=== PATIENT | male | born 1950 | race Caucasian/White ===

== ENCOUNTER 2016-07-21 12:56 | Outpatient (CLI) | payer MEDICARE, OTHER ==
[2016-07-21] MEDS ORDERED: ACETAMINOPHEN 500 MG TAB (TYLENOL) PO SCH (13:15)
[2016-07-21] MEDS ORDERED: NS FLUSH 10 ML PRN IV (13:15)
[2016-07-21] MEDS ORDERED: IMMUNE GLOBULIN GAMMA IV ONE (13:15)
[2016-07-21] MEDS ORDERED: diphenhydrAMINE 25 MG (BENADRYL) TABLET PO SCH (13:15)
[2016-07-21] MEDS ORDERED: NS FLUSH 3 ML PRN IV (13:15)
[2016-07-21] MEDS ORDERED: methylPREDNISolone 40 MG/ML (Solu-MEDROL) VIAL IV PRN (13:20)
--- NOTE | 2016-07-21 15:06 | NUR ---
1330 Pt arrived at the OB unit for infusion. 1430 Successful IV start. 1455 Pt transferred to ICU for infusion due to OB unit census/staffing.
[2016-07-21 15:10] VITALS: BP 143/82
[2016-07-21 15:26] VITALS: BP 143/82
--- NOTE | 2016-07-21 17:21 | NUR ---
1500- Patient arrives to room 341. 20 gauge IV in right wrist. VSS. 1510- IVIG infusion begins at 20cc/hr 1540- IVIG infusion increased to 40 cc/hr 1610- IVIG infusion increased to 80 cc/hr. 1640- IVIG infusion increased to 160cc/hr 1710- IVIG infusion increased to 270cc/hr.
--- NOTE | 2016-07-21 17:28 | NUR ---
IV infusion complete at this time
--- NOTE | 2016-07-21 17:46 | NUR ---
Chicho RN removes IV and escorts the patient out of the building at this time.
[2016-07-21 17:49] VITALS: BP 160/71
[2016-07-21 17:50] VITALS: BP 160/71
== END 2016-07-21 17:50 | disposition home or self-care (01) ==
LOC: OB 13:26 → ICU 14:32 → EUOP 17:50
PROVIDERS: ATTEND Family Medicine
DX: D83.8 Other common variable immunodeficiencies (principal)
CPT/HCPCS: 96365; 96366; J1459

== ENCOUNTER 2016-07-29 09:45 | Outpatient (RCR) | payer MEDICARE, OTHER | END 2016-08-17 | disposition home or self-care (01) | LOC: PT 09:45 | PROVIDERS: ATTEND Family Medicine | DX: J96.20 Acute and chronic respiratory failure, unspecified whether with hypoxia or hypercapnia (principal); J44.1 Chronic obstructive pulmonary disease with (acute) exacerbation; E86.0 Dehydration | CPT/HCPCS: 97001; 97110; G8978; G8979 ==

== ENCOUNTER 2016-08-03 16:36 | Inpatient (IN) | payer MEDICARE, OTHER ==
[~2016-08-03] VITALS: Ht 185.4 cm; Wt 68.5 kg
[2016-08-03 16:45] VITALS: BP 166/90
--- NOTE | 2016-08-03 16:45 | NUR ---
Patient admitted to room [address] Beckett's office. He reports increased shortness of air over the past several days but denies increased O2 use. He states he has remained on 2 liters NC as per home.
[2016-08-03] MEDS ORDERED: ALBUTEROL/IPRATROPIUM 3MG-0.5MG/3ML (DUONEB) NEB VIAL INH SCH (17:05)
[2016-08-03] MEDS ORDERED: SODIUM CHLORIDE FLUSH 10 ML ONE (17:28)
[2016-08-03] MEDS ORDERED: LACTATED RINGERS 1,000 ML IV SCH (17:28)
[2016-08-03] MEDS ORDERED: CALCIUM CARBONATE CHEWABLE 300 MG (TUMS) TABLET PO PRN (17:30)
[2016-08-03] MEDS ORDERED: ALBUTEROL 0.083% NEB SOLUTION 2.5 MG/3 ML VIAL INH PRN (17:30)
[2016-08-03] MEDS ORDERED: NS FLUSH 3 ML PRN IV (17:30)
[2016-08-03] MEDS ORDERED: NS FLUSH 10 ML PRN IV (17:30)
[2016-08-03] MEDS ORDERED: POLYETHYLENE GLYCOL 17 GM (MIRALAX) PACKET PO PRN (17:30)
[2016-08-03] MEDS ORDERED: ONDANSETRON 4 MG (ZOFRAN) ORAL DISSOLVE TAB PO PRN (17:30)
[2016-08-03] MEDS ORDERED: MAGNESIUM HYDROXIDE 80MG/ML (MILK OF MAGNESIA) 30 ML UDC PO PRN (17:30)
[2016-08-03] MEDS ORDERED: MAG HYDROX/AL HYDROX/SIMETH 200-200-20/5 ML (MAG-AL PLUS) 30 ML UDC PO PRN (17:30)
[2016-08-03] MEDS ORDERED: IBUPROFEN 600 MG (MOTRIN) TAB PO PRN (17:30)
--- NOTE | 2016-08-03 17:32 | NUR ---
Medication reconciliation completed using Dr. Beckett's clinic medical record for prescribed and OTC medications.
[2016-08-03 17:37] LABS: MEAN CORPUSCULAR HEMOGLOBIN 29.3 PG (26.0-34.0); MEAN CORPUSCULAR VOLUME 86 FL (80-100); MEAN PLATELET VOLUME 10.2 FL (6.0-9.5); PLATELET COUNT 310 10^3uL (150-450); WHITE BLOOD COUNT 17.29 10^3uL (4.0-11.0)
[2016-08-03] MEDS: ASPIRIN 81 MG CHEW PO SCH (17:37)
[2016-08-03 17:48] LABS: ALBUMIN 4.5 g/dL (3.4-5.0); ANION GAP 16.6 MEQ/L (3-15); CALCULATED IONIZED CALCIUM 4.2 mg/dL (3.8-4.6); MAGNESIUM* 1.9 mg/dL (1.6-2.3); PHOSPHORUS 3.1 mg/dL (2.4-4.9); TOTAL PROTEIN 7.6 g/dL (6.4-8.5)
[2016-08-03] MEDS ORDERED: ALBUTEROL/IPRATROPIUM 3MG-0.5MG/3ML (DUONEB) NEB VIAL INH ONE (17:50)
[2016-08-03 17:51] LABS: BAND NEUTROPHILS % 2 % (0-6); EOSINOPHILS % 0 % (0-4); LYMPHOCYTES # 1.6 #; MONOCYTES # 0.9 #; MONOCYTES % 5 % (3-11); RBC MORPH NORMAL (NORMAL); SEGMENTED NEUTROPHILS % 84 % (51-67); TOTAL CELLS COUNTED 100
[2016-08-03] MEDS: methylPREDNISolone 125 MG (Solu-MEDROL) VIAL IV SCH ×2 (18:22→23:48)
[2016-08-03] MEDS: CALCIUM CARBONATE 500 MG PO SCH (18:25)
--- NOTE | 2016-08-03 18:30 | NUR ---
Patient remains on O2 at 2 liters NC. Activity tolerance is actually better with this admission than it was with the last admission.
[2016-08-03 18:53] VITALS: BP 166/90
--- NOTE | 2016-08-03 19:40 | NUR ---
Pt placed on Continuous Pulse Oximetry
[2016-08-03] MEDS: ACETAMINOPHEN 325 MG TAB (TYLENOL) PO PRN (20:00)
[2016-08-03] MEDS: FLUTICASONE/SALMETEROL HFA 115/21 MCG (ADVAIR) COMMON CANNISTER INH SCH (20:19)
--- NOTE | 2016-08-03 20:24 | NUR ---
Pt found lying in bed on 2 l/min NC equal to home use. SPI2 95%, HR 100, RR 20 and non labored with clear upper lobes and crackles in bilateral bases. 2p Advair 115/21 tolerated well.
--- NOTE | 2016-08-03 20:30 | NUR ---
Resting in bed. Alert and oriented. IV patent, no complications at site. Respirations even and non-labored. Tylenol 650mg just given for a headache. Watching the basketball game. No concerns voiced. Crackles noted in bilateral bases. Occasional non-productive cough. Pleasant. Cooperative with cares.
[2016-08-03] MEDS ORDERED: LEVOFLOXACIN 750 MG/150 ML IV 150 ML IV SCH (21:15)
[2016-08-03] MEDS: ALBUTEROL 0.083% NEB SOLUTION 2.5 MG/3 ML VIAL INH SCH (21:56)
--- NOTE | 2016-08-03 21:58 | NUR ---
Pt found sitting on the side of his bed watching TV. SPO2 95% on RA, HR 97, RR 20 and non labored, BS clear and diminished before and after Duoneb via SVN which was tolerated well.
[2016-08-03] MEDS: ZOLPIDEM 10 MG (AMBIEN) TAB PO PRN (22:19)
--- NOTE | 2016-08-03 22:19 | NUR ---
Ultram 50mg administered along with sleeping meddication. Call light within reach.
[2016-08-03 23:58] VITALS: BP 94/50
[2016-08-04] MEDS: methylPREDNISolone 125 MG (Solu-MEDROL) VIAL IV SCH (06:00)
--- NOTE | 2016-08-04 06:30 | NUR ---
Rested well tonight. Oxygen remains on at 2 liters per NC. No respiratory difficulties noted. Denies pain. Fluids taken well. IV patent. Antibiotics administered as ordered. No concerns this morning. Call light within reach.
[2016-08-04 06:34] LABS: MEAN CORPUSCULAR HGB CONC 33.6 g/dL (31.0-37.0); MEAN CORPUSCULAR VOLUME 86 FL (80-100); MEAN PLATELET VOLUME 11.1 FL (6.0-9.5); PLATELET COUNT 300 10^3uL (150-450); WHITE BLOOD COUNT 15.66 10^3uL (4.0-11.0)
[2016-08-04 06:43] LABS: BAND NEUTROPHILS % 4 % (0-6); LYMPHOCYTES # 0.9 #; SEGMENTED NEUTROPHILS % 90 % (51-67); TOTAL CELLS COUNTED 100
[2016-08-04 06:44] LABS: EOSINOPHILS % 0 % (0-4); MONOCYTES % 0 % (3-11); RBC MORPH NORMAL (NORMAL)
[2016-08-04] MEDS: ALBUTEROL 0.083% NEB SOLUTION 2.5 MG/3 ML VIAL INH SCH ×4 (07:16→19:26)
[2016-08-04 07:17] LABS: ANION GAP 16.8 MEQ/L (3-15)
[2016-08-04] MEDS: TIOTROPIUM 18 MCG/CAP (SPIRIVA) INHALER (5 CAPS) IH SCH (07:17)
[2016-08-04] MEDS: FLUTICASONE/SALMETEROL HFA 115/21 MCG (ADVAIR) COMMON CANNISTER INH SCH ×2 (07:18→19:26)
[2016-08-04 07:59] VITALS: BP 130/81
[2016-08-04] MEDS: NS FLUSH 3 ML DAILY IV SCH (08:47)
[2016-08-04] MEDS: CALCIUM CARBONATE 500 MG PO SCH (08:58)
[2016-08-04] MEDS: MULTIVITAMIN W/MINERALS (THERAGRAN M) TABLET PO SCH (08:58)
[2016-08-04] MEDS: DILTIAZEM CD 240 MG (CARDIZEM CD) CAP PO SCH (08:58)
[2016-08-04] MEDS: ENOXAPARIN 40 MG/0.4 ML (LOVENOX) SYR SC SCH (08:58)
[2016-08-04] MEDS: ASPIRIN 81 MG CHEW PO SCH ×2 (08:58)
--- NOTE | 2016-08-04 09:06 | NUR ---
NUTRITION ASSESSMENT Level 1 Patient: Baljit Pruitt Age/Sex: 65/M Date Screened: 08-04-16 Weight: 150.7#/68.5 kg Height: 73 inches Primary Diagnosis: COPD, [id number] respiratory failure Diet Order: regular Relevant labs: glucose 184 Food allergies: N Nutrition Assessment Criteria Age over 80: N Body Mass Index (BMI) under 19: N Admission Screening Indicates Risk? N Moderate/High Risk Diagnosis: 3 points TPN or PPN: N NPO or clear liquid diet: N Serum Glucose <70 or >180: 3 points Hgb A1c >6.7: N/A Total: 6 points Risk Screen: __ Patient at low nutritional risk based on available data; reevaluate in 5-7 days __ Patient at moderate nutritional risk based on available data; reevaluate in 3-5 days _X_ Patient at high nutritional risk; complete Nutrition Assessment within 48 hours of admission.
--- NOTE | 2016-08-04 10:43 | NUR ---
MED REC COMPLETE--current med list obtained from patient interview and list from PCP Marky). Completed by Pharm. Ino Dosuza Candidate 2017. Addendum: 08/04/16 at 1049 by Sruthi Walker PHARM External med history application was also utilized to compile patient's med list.
[2016-08-04] MEDS ORDERED: LEVOFLOXACIN 750 MG TAB (LEVAQUIN) PO SCH (11:05)
--- NOTE | 2016-08-04 11:24 | NUR ---
NUTRITION ASSESSMENT Level II Patient: Baljit Pruitt Age/Sex: 65/M Date Assessed: 08-04-16 ASSESSMENT Pertinent History: Patient admitted with COPD and acute-on chronic respiratory failure, and screened at high nutritional risk secondary to diagnosis and elevated blood sugar without diagnosis of diabetes. PMHx includes COPD, emphysema, pneumonia, and hx rib fractures. He lives alone at home but [facility]ler helps him get groceries, and he eats lunch at the [facility] [facility]. Weight has been pretty stable; he weighed 154# in 2015. Meds/Nutrition: Prednisone, MVI Weight: 150.7#/68.5 kg Height: 73 inches Body Mass Index (BMI): 19.9 [place] Body Weight : 184#/83.6 kg % IBW: 81% GASTROINTESTINAL Appetite: improved--ate 100% today Diet Order: regular Unintentional loss of >10 lbs. in 3 months: N Difficult to chew/swallow: N Diabetes: N Relevant Labs: glucose 184 Calculations for Nutritional Assessment Estimated calorie needs: 28-30 kcals/kg = 1,900-2,040 kcals Estimated protein needs: 1.0-1.3 g/kg = 68-88 g./day DIAGNOSIS 1. Nutrition Diagnosis: Increased protein needs related to increased work of breathing as evidenced by COPD stage IV with emphysema. 2. Nutrition Diagnosis: Altered nutrition-related lab values (glucose) related to possibly medications as evidenced by glucose 184 without diabetes diagnosis and receiving steroids. NUTRITIONAL INTERVENTION Goal: Patient will receive adequate nutrition to meet his needs. Plan: Will provide regular diet as ordered and monitor intake for adequacy. Recommend minimum of 68 g. protein/day as calculated above. MONITORING & EVALUATION _X_ Monitor patients menu selections _X_ Monitor patients food intake per nursing notes __ Monitor NPO/clear liquid days __ Monitor lab values __ Monitor I&O __ Other
--- NOTE | 2016-08-04 11:27 | NUR ---
Pt. on 2L nc (home rate), 95%. BS are clear, pt. states feeling better than yesterday.
[2016-08-04 16:00] VITALS: BP 111/64
[2016-08-04] MEDS ORDERED: ALBUTEROL/IPRATROPIUM 3MG-0.5MG/3ML (DUONEB) NEB VIAL INH SCH (17:50)
[2016-08-04] MEDS: ACETAMINOPHEN 325 MG TAB (TYLENOL) PO PRN (18:08)
--- NOTE | 2016-08-04 19:00 | NUR ---
Patient has remained on 2 liters NC throughout the day. No difficulty noted with change to oral medications.
--- NOTE | 2016-08-04 19:28 | NUR ---
Pt found lying in bed on 2 l/min NC, SPO2 94%, HR 95, RR 18 and non labored with clear and diminished BS at this time. Pt complains of SOA during ambulation. Duoneb and Advair tolerated well. BS unchanged post Tx.
[2016-08-04] MEDS: ZOLPIDEM 10 MG (AMBIEN) TAB PO PRN (21:18)
[2016-08-04] MEDS: LEVOFLOXACIN 750 MG TAB (LEVAQUIN) PO SCH (21:18)
[2016-08-05 00:04] VITALS: BP 95/41
[2016-08-05] MEDS: TIOTROPIUM 18 MCG/CAP (SPIRIVA) INHALER (5 CAPS) IH SCH (05:16)
[2016-08-05] MEDS: FLUTICASONE/SALMETEROL HFA 115/21 MCG (ADVAIR) COMMON CANNISTER INH SCH ×2 (05:16→20:05)
[2016-08-05] MEDS: ALBUTEROL 0.083% NEB SOLUTION 2.5 MG/3 ML VIAL INH SCH ×4 (05:16→20:03)
--- NOTE | 2016-08-05 05:21 | NUR ---
Pt found lying in bed on 2 l/min NC, SPO2 93%, HR 81, RR 18 and non labored with clear BS before Spiriva, 2p Advair 115/21 via Spacer and Duoneb via SVN.
--- NOTE | 2016-08-05 06:25 | NUR ---
Patient rests in bed throughout night, states that he feels like he got some deep sleep "and a little cat nap", which patient had previously been worried about getting sleep. No needs at this time. Resting in bed watching television.
[2016-08-05 06:36] LABS: MEAN CORPUSCULAR HEMOGLOBIN 29.2 PG (26.0-34.0); MEAN CORPUSCULAR HGB CONC 33.4 g/dL (31.0-37.0); MEAN CORPUSCULAR VOLUME 87 FL (80-100); MEAN PLATELET VOLUME 10.8 FL (6.0-9.5); PLATELET COUNT 311 10^3uL (150-450); WHITE BLOOD COUNT 19.92 10^3uL (4.0-11.0)
[2016-08-05 07:21] LABS: ALBUMIN 3.9 g/dL (3.4-5.0); ANION GAP 15.2 MEQ/L (3-15); MAGNESIUM* 2.2 mg/dL (1.6-2.3)
[2016-08-05] MEDS: MULTIVITAMIN W/MINERALS (THERAGRAN M) TABLET PO SCH (07:28)
[2016-08-05] MEDS: predniSONE 20 MG (DELTASONE) TABLET PO SCH (07:29)
[2016-08-05 07:35] LABS: BAND NEUTROPHILS % 10 % (0-6); EOSINOPHILS % 0 % (0-4); LYMPHOCYTES # 0.8 #; MONOCYTES # 1.5 #; MONOCYTES % 8 % (3-11); RBC MORPH NORMAL (NORMAL); SEGMENTED NEUTROPHILS % 78 % (51-67); TOTAL CELLS COUNTED 100
[2016-08-05 08:17] VITALS: BP 144/66
[2016-08-05] MEDS: ASPIRIN 81 MG CHEW PO SCH (08:33)
[2016-08-05] MEDS: CALCIUM CARBONATE 500 MG PO SCH (08:33)
[2016-08-05] MEDS: DILTIAZEM CD 240 MG (CARDIZEM CD) CAP PO SCH (08:33)
[2016-08-05] MEDS: NS FLUSH 3 ML DAILY IV SCH (08:34)
[2016-08-05] MEDS: ENOXAPARIN 40 MG/0.4 ML (LOVENOX) SYR SC SCH (08:34)
[2016-08-05 15:58] VITALS: BP 149/71
--- NOTE | 2016-08-05 19:30 | NUR ---
Pt laying in bed. Saline lock without redness and edema. Pt has 2L per nasal cannula on .
[2016-08-05] MEDS: LEVOFLOXACIN 750 MG TAB (LEVAQUIN) PO SCH (21:06)
[2016-08-05] MEDS: ZOLPIDEM 10 MG (AMBIEN) TAB PO PRN (21:06)
[2016-08-05 23:49] VITALS: BP 105/56
[2016-08-06 06:25] LABS: BASOPHILS % (AUTO) 0 % (0-2); EOSINOPHILS % (AUTO) 0 % (0-4); LYMPHOCYTES # (AUTO) 1.1 X10^3; MEAN CORPUSCULAR HEMOGLOBIN 29.5 PG (26.0-34.0); MEAN CORPUSCULAR HGB CONC 33.2 g/dL (31.0-37.0); MEAN CORPUSCULAR VOLUME 89 FL (80-100); MEAN PLATELET VOLUME 10.6 FL (6.0-9.5); MONOCYTES # (AUTO) 1.4 X10^3; MONOCYTES % (AUTO) 10 % (3-11); NEUTROPHILS # (AUTO) 11.8 X10^3; NEUTROPHILS % (AUTO) 82 % (51-67); PLATELET COUNT 303 10^3uL (150-450); WHITE BLOOD COUNT 14.32 10^3uL (4.0-11.0)
--- NOTE | 2016-08-06 07:07 | NUR ---
Had a quiet night and was without complaint. This morning states he feels much better.
[2016-08-06] MEDS: FLUTICASONE/SALMETEROL HFA 115/21 MCG (ADVAIR) COMMON CANNISTER INH SCH ×2 (07:09→20:30)
[2016-08-06] MEDS: ALBUTEROL 0.083% NEB SOLUTION 2.5 MG/3 ML VIAL INH SCH ×4 (07:09→20:29)
[2016-08-06] MEDS: TIOTROPIUM 18 MCG/CAP (SPIRIVA) INHALER (5 CAPS) IH SCH (07:09)
[2016-08-06] MEDS: MULTIVITAMIN W/MINERALS (THERAGRAN M) TABLET PO SCH (07:59)
[2016-08-06] MEDS: predniSONE 20 MG (DELTASONE) TABLET PO SCH (07:59)
[2016-08-06 08:37] VITALS: BP 133/83
[2016-08-06] MEDS: CALCIUM CARBONATE 500 MG PO SCH (09:47)
[2016-08-06] MEDS: DILTIAZEM CD 240 MG (CARDIZEM CD) CAP PO SCH (09:47)
[2016-08-06] MEDS: ENOXAPARIN 40 MG/0.4 ML (LOVENOX) SYR SC SCH (09:47)
[2016-08-06] MEDS: ASPIRIN 81 MG CHEW PO SCH (09:47)
[2016-08-06] MEDS: NS FLUSH 3 ML DAILY IV SCH (09:48)
[2016-08-06 16:00] VITALS: BP 120/70
[2016-08-06] MEDS: DOXYCYCLINE 100 MG (VIBRAMYCIN) TABLET PO SCH (18:42)
[2016-08-06] MEDS ORDERED: DEXTROMETHORPHAN 15 MG/10 ML UDC PO PRN (19:55)
--- NOTE | 2016-08-06 20:31 | NUR ---
Pt is awake laying in bed with head elevated, tolerated tx well, on 2L, SPO2 96%. Pt wears 2L at home.
[2016-08-06] MEDS: ZOLPIDEM 10 MG (AMBIEN) TAB PO PRN (21:28)
[2016-08-07 00:33] VITALS: BP 133/75
[2016-08-07] MEDS: DOXYCYCLINE 100 MG (VIBRAMYCIN) TABLET PO SCH ×2 (06:12→18:02)
--- NOTE | 2016-08-07 06:17 | NUR ---
Patient rests in bed throughout night, states that he feels better this AM. States "I haven't been up yet, but at rest I feel pretty normal." No needs at this time.
[2016-08-07] MEDS: FLUTICASONE/SALMETEROL HFA 115/21 MCG (ADVAIR) COMMON CANNISTER INH SCH ×2 (07:12→18:50)
[2016-08-07] MEDS: TIOTROPIUM 18 MCG/CAP (SPIRIVA) INHALER (5 CAPS) IH SCH (07:12)
[2016-08-07] MEDS: ALBUTEROL 0.083% NEB SOLUTION 2.5 MG/3 ML VIAL INH SCH ×4 (07:12→18:50)
--- NOTE | 2016-08-07 07:16 | NUR ---
Pt found awake and lying i bed on 2 l/min NC, SPO2 98%, HR 70, RR 16 and non labored with clear BS before and after Tx.
[2016-08-07 07:58] VITALS: BP 141/87
[2016-08-07] MEDS: ENOXAPARIN 40 MG/0.4 ML (LOVENOX) SYR SC SCH (09:00)
[2016-08-07] MEDS: CALCIUM CARBONATE 500 MG PO SCH (09:33)
[2016-08-07] MEDS: predniSONE 20 MG (DELTASONE) TABLET PO SCH (09:33)
[2016-08-07] MEDS: DILTIAZEM CD 240 MG (CARDIZEM CD) CAP PO SCH (09:33)
[2016-08-07] MEDS: ASPIRIN 81 MG CHEW PO SCH (09:33)
[2016-08-07] MEDS: MULTIVITAMIN W/MINERALS (THERAGRAN M) TABLET PO SCH (09:33)
[2016-08-07] MEDS: NS FLUSH 3 ML DAILY IV SCH (09:34)
--- NOTE | 2016-08-07 10:55 | NUR ---
Pt found sitting in his chair, SPO2 96% on 2 l/min NC equal to home use, HR 83, RR 18 and non labored with clear BS before and after Tx with 2.5 mg albuterol via SVN which was tolerated well. Pt is talking in full sentences and shows no signs of dyspnea at rest.
--- NOTE | 2016-08-07 12:46 | NUR ---
Visited with Pt. regarding his discharge. Pt. reports feeling better and is open to going to skilled care. Pt. has been to [facility] before and is open to going there and is also open to going to [facility]. Pt. could possibly be discharged tomorrow. SW will contact [facility] and [facility] regarding acceptance.
--- NOTE | 2016-08-07 14:12 | NUR ---
Pt. has been accepted to [facility] skilled care. Plan for Pt. to discharge tomorrow to [phone] ext. [phone]. Pt. has been informed of this.
--- NOTE | 2016-08-07 15:24 | NUR ---
Pt found sitting in his chair on 2 l/min NC, SPO2 93%, hr 80, RR 18 and non labored with clear BS before and after Tx.
[2016-08-07 16:00] VITALS: BP 138/68
--- NOTE | 2016-08-07 18:28 | NUR ---
Patient has remained on 2 liters NC throughout the shift. Used the call light appropriately to ask for help when needed. Plan is to discharge to [place] [id number] tomorrow.
--- NOTE | 2016-08-07 18:53 | NUR ---
Pt found lying in bed on 2 l/min NC, SPO2 97%, HR 87, RR 16 and non labored. BS clear in the right lung, Left lower lobe has fine expiratory wheezes before Tx. Increased air movement post Tx. Mouth rinsed post Tx.
[2016-08-07] MEDS: ZOLPIDEM 10 MG (AMBIEN) TAB PO PRN (21:40)
--- NOTE | 2016-08-07 21:40 | NUR ---
Ambien given per pt. request; pt. denies discomfort; O2 at 2 L via NC; pt. ready for sleep.
[2016-08-08 00:31] VITALS: BP 109/65
--- NOTE | 2016-08-08 02:45 | NUR ---
Pt. resting quietly; resp are even and unlabored on O2 at 2L via NC; call light and H2O within reach.
[2016-08-08 06:42] LABS: BASOPHILS % (AUTO) 0 % (0-2); EOSINOPHILS # (AUTO) 0.1 10^3uL; EOSINOPHILS % (AUTO) 2 % (0-4); MEAN CORPUSCULAR HEMOGLOBIN 29.3 PG (26.0-34.0); MEAN CORPUSCULAR HGB CONC 32.7 g/dL (31.0-37.0); MEAN CORPUSCULAR VOLUME 90 FL (80-100); MEAN PLATELET VOLUME 10.4 FL (6.0-9.5); MONOCYTES # (AUTO) 0.9 X10^3; MONOCYTES % (AUTO) 11 % (3-11); NEUTROPHILS % (AUTO) 61 % (51-67); PLATELET COUNT 335 10^3uL (150-450); WHITE BLOOD COUNT 8.22 10^3uL (4.0-11.0)
[2016-08-08] MEDS: DOXYCYCLINE 100 MG (VIBRAMYCIN) TABLET PO SCH (07:07)
[2016-08-08 07:08] LABS: ALBUMIN 3.2 g/dL (3.4-5.0); MAGNESIUM* 2.1 mg/dL (1.6-2.3); PHOSPHORUS 3.5 mg/dL (2.4-4.9)
--- NOTE | 2016-08-08 07:10 | NUR ---
Vibramycin PO given; pt. takes without difficulty. Pt. states he slept "ok"; O2 at 2L via NC; pt. denies discomfort; very pleasant and conversational. Pt. agreeable with going to [facility] for skilled care; "It will help me get along better for home".
[2016-08-08] MEDS: TIOTROPIUM 18 MCG/CAP (SPIRIVA) INHALER (5 CAPS) IH SCH (07:42)
[2016-08-08] MEDS: ALBUTEROL 0.083% NEB SOLUTION 2.5 MG/3 ML VIAL INH SCH ×2 (07:42→11:16)
[2016-08-08] MEDS: FLUTICASONE/SALMETEROL HFA 115/21 MCG (ADVAIR) COMMON CANNISTER INH SCH (07:43)
--- NOTE | 2016-08-08 07:49 | NUR ---
Pt found lying in bed on 2 l/min NC, SPO2 98%, HR 68, RR 16 and non labored with clear BS before and after Txs. Mouth rinsed post Tx.
[2016-08-08 08:16] VITALS: BP 138/86
[2016-08-08] MEDS: MULTIVITAMIN W/MINERALS (THERAGRAN M) TABLET PO SCH (08:42)
[2016-08-08] MEDS: CALCIUM CARBONATE 500 MG PO SCH (08:42)
[2016-08-08] MEDS: ASPIRIN 81 MG CHEW PO SCH (08:42)
[2016-08-08] MEDS: DILTIAZEM CD 240 MG (CARDIZEM CD) CAP PO SCH (08:42)
[2016-08-08] MEDS: predniSONE 20 MG (DELTASONE) TABLET PO SCH (08:43)
[2016-08-08] MEDS: ENOXAPARIN 40 MG/0.4 ML (LOVENOX) SYR SC SCH (08:43)
[2016-08-08] MEDS: NS FLUSH 3 ML DAILY IV SCH (08:45)
--- NOTE | 2016-08-08 08:45 | NUR ---
Pt took AM meds without difficulty. Sitting on edge of bed, remains on 2L nc- chronic home O2 dose. Denies needs at this time. Discussed plan to dismiss to [facility] for Al[facility] care- will keep him up to date on times and transportation.
--- NOTE | 2016-08-08 11:00 | NUR ---
Pt refused to work with PT- states he was too SOA- Allen RT in room for treatment. PT will attempt to work with patient again- Dr. Berman notified.
--- NOTE | 2016-08-08 11:18 | NUR ---
Pt found on 2 l/min NC while sitting upright in bed, SPO2 94%, HR 75, RR 18 and non labored with clear BS before and after Duoneb via SVN.
--- NOTE | 2016-08-08 13:35 | NUR ---
24g IV dc'd from Rt wrist- tip intact, site without redness/swelling. Coban placed to secure gauze as tape gives him skin tears. Pt dressing indep while awaiting [facility].
--- NOTE | 2016-08-08 13:50 | NUR ---
Report called to [facility], given to Peyton Robbins LPN. Questions answered.
--- NOTE | 2016-08-08 13:54 | NUR ---
Pt dismissed to [place] [id number] at this time via w/c accompanied by [place] [facility].
== END 2016-08-08 13:55 | disposition home or self-care (01) | DRG 189 ==
LOC: INTOOBSV 16:37 → MED/SURG 16:37 → OBSVTOIN 08-05 12:02
PROVIDERS: ADMIT Family Medicine; ATTEND Family Medicine
DX: J96.20 Acute and chronic respiratory failure, unspecified whether with hypoxia or hypercapnia (principal); J44.1 Chronic obstructive pulmonary disease with (acute) exacerbation; I47.1 Supraventricular tachycardia; Z66 Do not resuscitate; I10 Essential (primary) hypertension; G47.00 Insomnia, unspecified; Z99.81 Dependence on supplemental oxygen; Z87.891 Personal history of nicotine dependence
CPT/HCPCS: 36415; 71020; 80048; 80053; 80069; 83605; 83735; 83880; 84100; 85025; 86140; 87486; 87581; 87633; 87798; 94640; 94762

== ENCOUNTER → 2016-08-03 | Outpatient (CLI) | payer MEDICARE, OTHER | LOC: RAD 15:18 | PROVIDERS: ATTEND Family Medicine | DX: R05 Cough (principal); J43.8 Other emphysema | CPT/HCPCS: 71020 ==

== ENCOUNTER 2016-08-18 13:45 | Outpatient (RCR) | payer MEDICARE, OTHER ==
[2016-08-18] MEDS ORDERED: ACETAMINOPHEN 500 MG TAB (TYLENOL) PO SCH (13:55)
[2016-08-18] MEDS ORDERED: diphenhydrAMINE 25 MG (BENADRYL) TABLET PO SCH (13:55)
[2016-08-18] MEDS ORDERED: methylPREDNISolone 40 MG/ML (Solu-MEDROL) VIAL IV PRN (13:55)
[2016-08-18] MEDS ORDERED: NS FLUSH 10 ML PRN IV (13:55)
[2016-08-18] MEDS ORDERED: NS FLUSH 3 ML PRN IV (13:55)
[2016-08-18] MEDS ORDERED: IMMUNE GLOBULIN GAMMA IV ONE (14:00)
--- NOTE | 2016-08-18 14:10 | NUR ---
Pt arrived ambulatory to room 228 with his portable oxygen tank. Transferred O2 to our supply. Pt states that he did not take his pre meds at home and would need them here.
[2016-08-18 15:00] VITALS: BP 110/73
--- NOTE | 2016-08-18 15:36 | NUR ---
1512 started infusion at 20 ml/hr. pt tolerated well. 1530 increased infusion to 75 ml/hr. pt tolerating well.
[2016-08-18 16:00] VITALS: BP 117/68
--- NOTE | 2016-08-18 16:14 | NUR ---
1600 Increased infusion rate to 150 ml/hr. pt tolerating well.
--- NOTE | 2016-08-18 16:30 | NUR ---
Infusion increased to 220. pt. tolerating well
--- NOTE | 2016-08-18 17:00 | NUR ---
Infusion completed and IV dc'd. Pt states he feels good and requests to ambulate out of hospital. [facility] called for ride.
--- NOTE | 2016-08-18 17:10 | NUR ---
Dismissed to home accompanied by [facility] staff.
== END 2016-08-18 17:10 | disposition home or self-care (01) ==
LOC: EDSTATUS 13:45 → EUOP 13:45 → OB 14:01 → EUOP 17:10
PROVIDERS: ATTEND Family Medicine
DX: D83.8 Other common variable immunodeficiencies (principal)
CPT/HCPCS: 96365; 96366; A9270; J1459

== ENCOUNTER 2016-09-15 12:51 | Outpatient (RCR) | payer MEDICARE, OTHER ==
[~2016-09-15] VITALS: Ht 185.4 cm; Wt 68.3 kg
[~2016-09-15 12:51] MED LIST: ACET-2264 PO; ACET325T38 PO; ALB0.5V INH; ALBU2.5V4 INH; ALBU6.7H IH; ALEN70TA47 PO; ASPI-860 PO; AZIT250T PO; CALC1CAP21 PO; CALC600T12 PO; CALC600T19 PO; CEFD300C9 PO; DILT180C PO; DILT240C86 PO; DOXY100T41 PO; FLT11013 INH; FLUT16SP NSEACH; FLUT1DIS3 IH; FOLI1TAB9 PO; FURO-124 PO; GUAI-370 PO; GUAI120013 PO; HYDR-3702 PO; IPRA3AMP11 INH; LEVO500T16 PO; METH4TAB27 PO; METO-272 PO; MOME13HF IH; MULT-955 PO; ONDAN4ODT PO; POTA20TA15 PO; PRD20T PO; PRED10TA PO; PRED20TA PO; ROFL500T PO; SULF-221 PO; TIOT18CA IH; TRM50T PO; ZOLP10TA PO; [UNRECOGNIZED DRUG - CODE] PO
[2016-09-15] MEDS ORDERED: diphenhydrAMINE 25 MG (BENADRYL) TABLET PO SCH (13:05)
[2016-09-15] MEDS ORDERED: IMMUNE GLOBULIN GAMMA IV ONE (13:05)
[2016-09-15] MEDS ORDERED: NS FLUSH 3 ML PRN IV (13:05)
[2016-09-15] MEDS ORDERED: methylPREDNISolone 40 MG/ML (Solu-MEDROL) VIAL IV PRN (13:10)
[2016-09-15] MEDS ORDERED: ACETAMINOPHEN 500 MG TAB (TYLENOL) PO SCH (13:10)
[2016-09-15 14:42] LABS: MEAN CORPUSCULAR HEMOGLOBIN 28.6 PG (26.0-34.0); MEAN CORPUSCULAR HGB CONC 32.8 g/dL (31.0-37.0); MEAN CORPUSCULAR VOLUME 87 FL (80-100); MEAN PLATELET VOLUME 10.3 FL (6.0-9.5); PLATELET COUNT 310 10^3uL (150-450); WHITE BLOOD COUNT 7.25 10^3uL (4.0-11.0)
[2016-09-15 14:47] LABS: BAND NEUTROPHILS % 1 % (0-6); EOSINOPHILS % 1 % (0-4); LYMPHOCYTES # 1.1 #; MONOCYTES # 0.4 #; MONOCYTES % 6 % (3-11); RBC MORPH NORMAL (NORMAL); SEGMENTED NEUTROPHILS % 77 % (51-67); TOTAL CELLS COUNTED 100
[2016-09-15 14:58] LABS: ALBUMIN 4.1 g/dL (3.4-5.0); ANION GAP 14.7 MEQ/L (3-15); CALCULATED IONIZED CALCIUM 4.3 mg/dL (3.8-4.6); TOTAL PROTEIN 6.9 g/dL (6.4-8.5)
--- NOTE | 2016-09-15 16:22 | NUR ---
IVIG RATE INCREASED FROM 120ML/HR TO 140ML/HR. BP 138/100, PT UP TO RESTROOM.
[2016-10-13] VITALS (13 sets, daily range): BP systolic 109–140; BP diastolic 69–85
[2016-10-13] MEDS ORDERED: IMMUNE GLOBULIN GAMMA IV ONE (13:10)
--- NOTE | 2016-10-13 13:15 | NUR ---
Pt admitted to room 341 per w/c to have IVIG infusion. Pt placed on oxygen 2L/NC. Pt alert and oriented x 4. IV started in RFA with 20 g intracath x 1 atttempt. Had good blood return and flushed with 10cc NS. Site secured with tegaderm and coban. Monitor attached for VS, WNL.
[2016-10-13] MEDS ORDERED: diphenhydrAMINE 25 MG (BENADRYL) TABLET PO ONE (13:25)
[2016-10-13] MEDS ORDERED: ACETAMINOPHEN 500 MG TAB (TYLENOL) PO ONE (13:25)
[2016-10-13] MEDS ORDERED: methylPREDNISolone 40 MG/ML (Solu-MEDROL) VIAL IV PRN (13:30)
[2016-10-13] MEDS: NS FLUSH 10 ML PRN IV ×2 (13:41→17:27)
--- NOTE | 2016-10-13 16:50 | NUR ---
2nd bottle of privigen 50 ml started Lot [id number] exp Mar,. Pt tolerating infusion well. Denies needs at present.
--- NOTE | 2016-10-13 17:05 | NUR ---
Infusion of IVIG completed. IV site dcd and pressure applied for 3 minutes. 2x 2 applied and coban used to secure gauze. Pt tolerated infusion well.
--- NOTE | 2016-10-13 17:15 | NUR ---
Pt dismissed to home per w/c accompanied by this RN. Made next appt prior to going home.
[2016-11-05] MEDS ORDERED: PRD20T PO (15:47)
[2016-11-05] MEDS ORDERED: DOXY100T41 PO (15:47)
[2016-11-10] VITALS (7 sets, daily range): BP systolic 92–119; BP diastolic 61–78
--- NOTE | 2016-11-10 12:45 | NUR ---
patient arrives to room 341 for IVIG. Orders in process
[2016-11-10] MEDS ORDERED: IMMUNE GLOBULIN GAMMA IV ONE (12:50)
[2016-11-10] MEDS ORDERED: diphenhydrAMINE 25 MG (BENADRYL) TABLET PO ONE (12:50)
[2016-11-10] MEDS ORDERED: ACETAMINOPHEN 500 MG TAB (TYLENOL) PO ONE (12:55)
--- NOTE | 2016-11-10 13:00 | NUR ---
22 gauge IV started at this time
[2016-11-10] MEDS ORDERED: SODIUM CHLORIDE FLUSH 10 ML ONE (13:07)
--- NOTE | 2016-11-10 13:15 | NUR ---
IVIG infusion begins at 20cc/hr
--- NOTE | 2016-11-10 13:47 | NUR ---
infusion increased to 40 cc/hr
--- NOTE | 2016-11-10 14:11 | NUR ---
infusion increased to 80cc/hr at this time. VSS and WNL
--- NOTE | 2016-11-10 14:50 | NUR ---
infusion increased to 160cc/hr
--- NOTE | 2016-11-10 15:20 | NUR ---
infusion increased to 240cc/hr. VSS and WNL
--- NOTE | 2016-11-10 15:44 | NUR ---
Infusion complete and IV removed. The patient is escorted out via wheelchair by Terri Valentine RN
== END 2016-11-25 18:23 | disposition home or self-care (01) ==
LOC: EUOP 10-13 12:54 → ICU 10-13 13:04 → EUOP 10-13 13:04 → ICU 11-10 12:45 → EUOP 11-10 12:45
PROVIDERS: ATTEND Family Medicine
DX: D83.8 Other common variable immunodeficiencies (principal)
CPT/HCPCS: 36415; 80053; 82784; 85007; 85027; 96365; 96366; J1459; 36000

== ENCOUNTER 2016-09-23 09:00 | Outpatient (RCR) | payer MEDICARE, OTHER | END 2016-09-30 12:00 | disposition home or self-care (01) | LOC: PT 09:00 | PROVIDERS: ATTEND Nurse Practitioner Family | DX: J44.1 Chronic obstructive pulmonary disease with (acute) exacerbation (principal) ==

== ENCOUNTER 2016-11-03 15:00 | Inpatient (IN) | payer MEDICARE, OTHER ==
[~2016-11-03] VITALS: Ht 185.4 cm; Wt 65.7 kg
--- NOTE | 2016-11-03 15:07 | NUR ---
ARRIVES TO ROOM 317 ACCOMPANIED BY VOLUNTEER. A/O X4. RESP SLIGHTLY LABORED WITH ACTIVITY. SKIN W/P/D.
[2016-11-03 15:10] VITALS: BP 159/76
[2016-11-03] MEDS ORDERED: CALCIUM CARBONATE CHEWABLE 300 MG (TUMS) TABLET PO PRN (15:10)
[2016-11-03] MEDS ORDERED: methylPREDNISolone 125 MG (Solu-MEDROL) VIAL IV ONE ×2 (15:10→17:10)
[2016-11-03] MEDS ORDERED: MAG HYDROX/AL HYDROX/SIMETH 200-200-20/5 ML (MAG-AL PLUS) 30 ML UDC PO PRN (15:10)
[2016-11-03] MEDS ORDERED: ALBUTEROL 0.083% NEB SOLUTION 2.5 MG/3 ML VIAL INH PRN (15:10)
[2016-11-03] MEDS ORDERED: POLYETHYLENE GLYCOL 17 GM (MIRALAX) PACKET PO PRN (15:10)
[2016-11-03] MEDS ORDERED: ONDANSETRON 4 MG (ZOFRAN) ORAL DISSOLVE TAB PO PRN (15:10)
[2016-11-03] MEDS ORDERED: ACETAMINOPHEN 325 MG TAB (TYLENOL) PO PRN (15:10)
[2016-11-03] MEDS ORDERED: PROMETHAZINE HCL INJ 12.5 MG in SODIUM CHLORIDE 25 ML IV PRN (15:10)
[2016-11-03] MEDS ORDERED: MAGNESIUM HYDROXIDE 80MG/ML (MILK OF MAGNESIA) 30 ML UDC PO PRN (15:10)
[2016-11-03] MEDS ORDERED: DOCUSATE SODIUM 100 MG (COLACE) CAP PO PRN (15:10)
[2016-11-03] MEDS ORDERED: IBUPROFEN 600 MG (MOTRIN) TAB PO PRN (15:10)
--- NOTE | 2016-11-03 15:16 | NUR ---
has multiple credit cards and nine $20 bills in his wallet. He is aware that a safe is available to keep them secure, but he wants to keep them on his person at this time. He will notify staff if he wants money locked up at a later time. Addendum: 11/03/16 at 1517 by Poornima Cross RN Amended: Links added.
[2016-11-03] MEDS ORDERED: NS FLUSH 3 ML PRN IV (15:25)
[2016-11-03] MEDS ORDERED: NS FLUSH 10 ML PRN IV (15:25)
--- NOTE | 2016-11-03 15:29 | NUR ---
Pt assessed upon arrival to floor, SPO2 96% on 2 l/min NC equal to home use, HR 112, RR 18 and Pt is able to talk in multiple sentence breaths. BS are clear un bilateral upper lobes, very fine rales in lower lobes at this time. Pt does not feel the need for a PRN respiratory intervention at this time.
--- NOTE | 2016-11-03 15:34 | NUR ---
to x-ray per w/c accompanied by x-ray staff.
--- NOTE | 2016-11-03 16:03 | NUR ---
DR. KARIMI AT BEDSIDE.
[2016-11-03] MEDS ORDERED: HALL'S COUGH DROPS MM PRN (16:05)
--- NOTE | 2016-11-03 16:14 | Diagnostic Imaging Report ---
INDICATION: COPD. TECHNIQUE: PA and lateral views of the chest were obtained. COMPARISON: 08/06/2016. FINDINGS: Extensive emphysema is seen in both lungs. There is no evidence of new mass or infiltrate. No pneumothorax is identified. There is no significant pleural fluid. There is diffuse thoracic spondylosis, similar to the previous exam. Pectus excavatum is again noted. IMPRESSION: Stable extensive emphysema and likely COPD. No new abnormality or adverse change is identified. Dictated by: Dictated on workstation # [id number]
[2016-11-03 16:17] LABS: BASOPHILS % (AUTO) 0 % (0-2); EOSINOPHILS # (AUTO) 0.1 10^3uL; EOSINOPHILS % (AUTO) 1 % (0-4); LYMPHOCYTES # (AUTO) 1.6 X10^3; MEAN CORPUSCULAR HEMOGLOBIN 28.2 PG (26.0-34.0); MEAN CORPUSCULAR HGB CONC 32.3 g/dL (31.0-37.0); MEAN CORPUSCULAR VOLUME 87 FL (80-100); MEAN PLATELET VOLUME 10.1 FL (6.0-9.5); MONOCYTES # (AUTO) 1.9 X10^3; MONOCYTES % (AUTO) 13 % (3-11); NEUTROPHILS # (AUTO) 10.5 X10^3; NEUTROPHILS % (AUTO) 74 % (51-67); PLATELET COUNT 351 10^3uL (150-450); WHITE BLOOD COUNT 14.15 10^3uL (4.0-11.0)
--- NOTE | 2016-11-03 16:32 | NUR ---
Medication reconciliation completed using patient previous discharge from in Jul, external med history prescription from [facility], and direct interview with Mr. Pruitt. He clarified how he takes some medications and his compliance which is very good for his inhalers but misses doses weekly for his other medications.
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
[2016-11-03 16:52] LABS: ALBUMIN 4.5 g/dL (3.4-5.0); ANION GAP 20.3 MEQ/L (3-15); CALCULATED IONIZED CALCIUM 3.8 mg/dL (3.8-4.6); TOTAL PROTEIN 8.2 g/dL (6.4-8.5)
[2016-11-03] MEDS: NS FLUSH 3 ML DAILY IV SCH (17:19)
[2016-11-03] MEDS: DOXYCYCLINE 100 MG (VIBRAMYCIN) TABLET PO SCH (18:44)
[2016-11-03] MEDS ORDERED: FLUTICASONE/SALMETEROL HFA 115/21 MCG (ADVAIR) COMMON CANNISTER INH ONE (19:25)
[2016-11-03] MEDS: FLUTICASONE/SALMETEROL HFA 115/21 MCG (ADVAIR) COMMON CANNISTER INH SCH (19:29)
--- NOTE | 2016-11-03 19:36 | NUR ---
Pt found lying in bed on 2 l/min NC, SPO2 96%, HR 100, RR 18 and non labored with clear BS at this time. 2p Advair 115/21 given via spacer tolerated well.
[2016-11-03 20:05] VITALS: BP 147/51
[2016-11-03] MEDS: ZOLPIDEM 10 MG (AMBIEN) TAB PO SCH (20:33)
[2016-11-03] MEDS: guaiFENesin ER 600 MG (MUCINEX) TAB PO SCH (20:34)
[2016-11-03 23:37] LABS: BILIRUBIN,URINE Negative (Negative); CLARITY,URINE Clear; COLOR,URINE Yellow; GLUCOSE, URINE (UA) Negative (Negative); LEUKOCYTE ESTERASE ,URINE Negative (Negative); UROBILINOGEN,URINE 0.2 mg/dL (0.2-1.0)
[2016-11-04 00:09] VITALS: BP 109/61
[2016-11-04 04:05] VITALS: BP 130/72
--- NOTE | 2016-11-04 04:17 | NUR ---
0-Pt is resting in recliner reading a book and listening to the tv. Denies pain or discomfort at this time. IV to RFA is patent, no signs of redness, swelling, or s/s of infection noted at this time. Bed alarm is on, call light is in reach, will continue to monitor. 416-Pt is currently resting in bed asleep, Resp are even and nonlabored, does not appear to be in pain or discomfort at this time. Bed alarm is on, and call light is in reach.
[2016-11-04] MEDS: DOXYCYCLINE 100 MG (VIBRAMYCIN) TABLET PO SCH ×2 (05:45→18:31)
[2016-11-04 06:29] LABS: BASOPHILS % (AUTO) 0 % (0-2); EOSINOPHILS % (AUTO) 0 % (0-4); LYMPHOCYTES # (AUTO) 0.9 X10^3; MEAN CORPUSCULAR HGB CONC 32.7 g/dL (31.0-37.0); MEAN CORPUSCULAR VOLUME 86 FL (80-100); MEAN PLATELET VOLUME 9.9 FL (6.0-9.5); MONOCYTES # (AUTO) 0.7 X10^3; MONOCYTES % (AUTO) 7 % (3-11); NEUTROPHILS # (AUTO) 8.7 X10^3; NEUTROPHILS % (AUTO) 85 % (51-67); PLATELET COUNT 335 10^3uL (150-450); WHITE BLOOD COUNT 10.29 10^3uL (4.0-11.0)
[2016-11-04 07:50] VITALS: BP 139/70
--- NOTE | 2016-11-04 08:10 | NUR ---
Report received from Sunshine CAICEDO and care assumed. Pt is awake and sitting on the side of the bed.
[2016-11-04] MEDS ORDERED: FLUTICASONE NASAL 50 MCG/SPRAY (FLONASE) 16 GM BTL NS PRN (09:00)
[2016-11-04] MEDS: FLUTICASONE/SALMETEROL HFA 115/21 MCG (ADVAIR) COMMON CANNISTER INH SCH ×2 (09:04→20:16)
[2016-11-04] MEDS: TIOTROPIUM 18 MCG/CAP (SPIRIVA) INHALER (5 CAPS) IH SCH (09:04)
[2016-11-04] MEDS: ASPIRIN 81 MG CHEW (LOW-DOSE) PO SCH (09:08)
[2016-11-04] MEDS: CALCIUM CITRATE/VITAMIN D3 315MG/250IU (CALCITRATE +D) TABLET PO SCH (09:09)
[2016-11-04] MEDS: DILTIAZEM CD 240 MG (CARDIZEM CD) CAP PO SCH (09:09)
[2016-11-04] MEDS: MULTIVITAMIN W/MINERALS (THERAGRAN M) TABLET PO SCH (09:09)
[2016-11-04] MEDS: guaiFENesin ER 600 MG (MUCINEX) TAB PO SCH ×2 (09:09→20:49)
[2016-11-04] MEDS: NS FLUSH 3 ML DAILY IV SCH (09:10)
[2016-11-04] MEDS: ENOXAPARIN 40 MG/0.4 ML (LOVENOX) SYR SC SCH (09:10)
[2016-11-04] MEDS: predniSONE 20 MG (DELTASONE) TABLET PO SCH (09:10)
--- NOTE | 2016-11-04 09:10 | NUR ---
Asssessments completed and pt states he feels better than yesterday. Oxygen on at 2L/NC. Denies pain or needs.
--- NOTE | 2016-11-04 11:19 | Progress Note (E) ---
Progress Note SUBJECTIVE Found to have entero/rhinovirus URI causing COPD exacerbation. No reported issues overnight. Tolerating therapies well. Updated him on findings, plan of care. Voices understanding and appreciation. OBJECTIVE Vital Signs Date Time Temp Pulse Resp B/P Pulse Ox O2 Delivery O2 Flow Rate FiO2 11/04/16 07:50 98.4 79 16 139/70 95 Nasal cannula I & O 11/03/16 11/04/16 Cumulative From/Thru 19:00 07:00 11/03/16 15:10 - 11/04/16 06:08 Intake Total 1185 ml 1185 ml Output Total 700 ml 700 ml Balance 485 ml 485 ml GEN: Awake, alert, oriented, NAD at present. HEENT: EOMI, clear sclerae, somewhat dry oral mucosa. CV: RRR S1 S2 normal with no murmur LUNGS: Prolonged expiration. Diminished. No R/R/W. ABD: Soft, NT/ND with normal bowel sounds. EXTR: No C/C/E. Normal peripheral pulses. INTEG: No rash. Some resolving bruises on left forearm. NEURO: No focal motor neuro deficit. Weight: 65 kg Lab-Past 14 Days, 35 Results 11/03/16 16:00: Alanine Aminotransferase (ALT/SGPT) 26L, Albumin 4.5, Albumin/Globulin Ratio 1.216, Alkaline Phosphatase 76, Anion Gap 20.3H, Aspartate Amino Transf (AST/ SGOT) 27, BUN/Creatinine Ratio 21H, Basophils # (Auto) 0.0, Basophils (%) (Auto ) 0, Blood Urea Nitrogen 17#, Calcium Level 9.5, Calcium/Ionized Calcium Ratio 3.8, Calculated Osmolality 276L, Carbon Dioxide Level 27, Chloride Level 99, Creatinine 0.82, Eosinophils # (Auto) 0.1, Eosinophils (%) (Auto) 1, Estimat Glomerular Filtration Rate 113.4, Estimated GFR (Non- 93.7, Glucose Level 101, Hematocrit 37.10L, Hemoglobin 12.0L, Lymphocytes # (Auto) 1.6 , Lymphocytes (%) (Auto) 11L, Mean Corpuscular Hemoglobin 28.2, Mean Corpuscular Hemoglobin Concent 32.3, Mean Corpuscular Volume 87, Mean Platelet Volume 10.1H, Monocytes # (Auto) 1.9, Monocytes (%) (Auto) 13H, Neutrophils # ( Auto) 10.5, Neutrophils (%) (Auto) 74H, Platelet Count 351, Potassium Level 4.4 , Red Blood Count 4.26L, Red Cell Distribution Width 13.4, Sodium Level 142, Total Bilirubin 0.9#, Total Protein 8.2, White Blood Count 14.15H 11/03/16 16:15: Adenovirus (PCR) Negative, Bordetella parapertussis DNA (PCR) Negative, Chlamydophila pneumoniae (PCR) Negative, Coronavirus Type 229E (PCR) Negative, Coronavirus Type HKU1 (PCR) Negative, Coronavirus Type NL63 (PCR) Negative, Coronavirus Type OC43 (PCR) Negative, Enterovirus/Rhinovirus (PCR) Positive*A, Human Metapneumovirus (PCR) Negative, Influenza Type A (H1) (PCR) Negative, Influenza Virus Type B (PCR) Negative, Mycoplasma pneumoniae (PCR) Negative, Parainfluenza Type 1 (PCR) Negative, Parainfluenza Type 2 (PCR) Negative, Parainfluenza Type 3 (PCR) Negative, Parainfluenza Type 4 (PCR) Negative, Respiratory Syncytial Virus (PCR) Negative 11/03/16 23:00: Urine Bilirubin Negative, Urine Blood Negative, Urine Clarity Clear, Urine Collection Type Clean catch, Urine Color Yellow, Urine Glucose (UA) Negative, Urine Ketones Negative, Urine Leukocyte Esterase Negative, Urine Nitrite Negative, Urine Protein Negative, Urine Specific [place] 1.025, Urine Urobilinogen 0.2, Urine pH 6.0 11/04/16 05:45: Albumin 4.0, Anion Gap 17.0H, Basophils # (Auto) 0.0, Basophils (%) (Auto) 0, Blood Urea Nitrogen 19H, Calcium Level 9.4, Carbon Dioxide Level 27, Chloride Level 101, Creatinine 0.74L, Eosinophils # (Auto) 0.0, Eosinophils (%) (Auto) 0 , Estimat Glomerular Filtration Rate 127.7, Estimated GFR (Non- 105.5, Glucose Level 140#H, Hematocrit 34.30L, Hemoglobin 11.2L, Lymphocytes # ( Auto) 0.9, Lymphocytes (%) (Auto) 8L, Mean Corpuscular Hemoglobin 28.0, Mean Corpuscular Hemoglobin Concent 32.7, Mean Corpuscular Volume 86, Mean Platelet Volume 9.9H, Monocytes # (Auto) 0.7, Monocytes (%) (Auto) 7, Neutrophils # (Auto ) 8.7, Neutrophils (%) (Auto) 85H, Platelet Count 335, Potassium Level 4.6, Red Blood Count 4.00L, Red Cell Distribution Width 13.1, Sodium Level 141, White Blood Count 10.29, Phosphorus Level 4.8# MICRO 11/03 Blood culture PENDING 11/03 Resp PCR Panel Positive for entero/rhinovirus. 11/03 Sputum culture PENDING IMAGING 11/03/16 CHEST PA/LAT (2 VIEW)* INDICATION: COPD. TECHNIQUE: PA and lateral views of the chest were obtained. COMPARISON: 08/06/2016. FINDINGS: Extensive emphysema is seen in both lungs. There is no evidence of new mass or infiltrate. No pneumothorax is identified. There is no significant pleural fluid. There is diffuse thoracic spondylosis, similar to the previous exam. Pectus excavatum is again noted. IMPRESSION: Stable extensive emphysema and likely COPD. No new abnormality or adverse change is identified. ASSESSMENT Jenny Pruitt is a 66 year old male admitted from clinic 11/03 acute on chronic respiratory failure attributed to COPD with acute exacerbation. He had fever/ chills preceding hospitalization concerning for viral or bacterial pneumonia. He has a few chronic problems. PLAN * Acute on Chronic Respiratory Failure: Oxygen protocol. Treat COPD. * COPD Stage IV with Acute Exacerbation: Attriuted to entero/rhinovirus URI. Sputum culture pending. Tiotropium, fluticasone/salmeterol, albuterol PRN. Methylprednisolone, then prednisone. Doxycycline. * URI due to Entero/Rhinovirus: Supportive care. Throat lozenge. * Constipation: Bowel regimen. * Fever: acetaminophen, ibuprofen * Nausea: ondansetron, promethazine. * Deconditioning: PT eval and treat. * F/E/N: Regular diet. Peripheral IV. I&O, daily weight. * Prophylaxis: Enoxaparin * Code Status: DNR * Disposition: Inpatient, expecting 3-day stay. CHRONIC ISSUES * HTN: Diltiazem * SVT: Diltiazem * Insomnia: Zolpidem * Allergic rhinitis: Fluticasone nasal. * Chronic pain: Tramadol. JENNY KARIMI MD November 04, 2016 11:19
[2016-11-04 11:56] VITALS: BP 159/69
--- NOTE | 2016-11-04 13:00 | NUR ---
Pt awake and alert, watching TV. Ate a good lunch. Denies pain. Ambulates in the room without assistance.
[2016-11-04 16:00] VITALS: BP 120/68
--- NOTE | 2016-11-04 18:32 | NUR ---
Pt c/o of HERNANDEZ, tylenol 650 mg po given for pain. Pt states he had HERNANDEZ most of day but didn't want to take anything until now.
--- NOTE | 2016-11-04 19:45 | NUR ---
Headache still present. Will reassess at med pass.
[2016-11-04 20:14] VITALS: BP 120/73
[2016-11-04] MEDS: ZOLPIDEM 10 MG (AMBIEN) TAB PO SCH (20:49)
--- NOTE | 2016-11-04 20:50 | NUR ---
Patient states his headache is better and rates the pain at 2/10. Denies need for Motrin, but want to take Ambien and see if he can sleep.
[2016-11-05 01:00] VITALS: BP 138/82
[2016-11-05 04:56] VITALS: BP 135/70
[2016-11-05] MEDS: DOXYCYCLINE 100 MG (VIBRAMYCIN) TABLET PO SCH (06:45)
--- NOTE | 2016-11-05 07:40 | NUR ---
After headache resolved, patient had no further c/o pain. He did have trouble sleeping well and was awake frequently.
[2016-11-05 08:00] VITALS: BP 124/62
[2016-11-05] MEDS: TIOTROPIUM 18 MCG/CAP (SPIRIVA) INHALER (5 CAPS) IH SCH (08:07)
[2016-11-05] MEDS: FLUTICASONE/SALMETEROL HFA 115/21 MCG (ADVAIR) COMMON CANNISTER INH SCH (08:07)
--- NOTE | 2016-11-05 08:12 | NUR ---
Pt sitting on edge of bed. BS clear, SpO2 96-97% on Room Air. Pt states does not need aerosol treatment at this time,
[2016-11-05] MEDS: CALCIUM CITRATE/VITAMIN D3 315MG/250IU (CALCITRATE +D) TABLET PO SCH (08:41)
[2016-11-05] MEDS: predniSONE 20 MG (DELTASONE) TABLET PO SCH (08:41)
[2016-11-05] MEDS: guaiFENesin ER 600 MG (MUCINEX) TAB PO SCH (08:41)
[2016-11-05] MEDS: ASPIRIN 81 MG CHEW (LOW-DOSE) PO SCH (08:41)
[2016-11-05] MEDS: DILTIAZEM CD 240 MG (CARDIZEM CD) CAP PO SCH (08:41)
[2016-11-05] MEDS: MULTIVITAMIN W/MINERALS (THERAGRAN M) TABLET PO SCH (08:41)
[2016-11-05] MEDS: ENOXAPARIN 40 MG/0.4 ML (LOVENOX) SYR SC SCH (08:44)
--- NOTE | 2016-11-05 09:23 | NUR ---
NUTRITION ASSESSMENT Level 1 Patient: Baljit Pruitt Age/Sex: 66/M Date Screened: 11-05-16 Weight: 144.5#/65.7 kg Height: 73 inches Primary Diagnosis: COPD Diet Order: regular Relevant labs: glucose 140 Food allergies: N Nutrition Assessment Criteria Age over 80: N Body Mass Index (BMI) under 19: N Admission Screening Indicates Risk? 6 points Moderate/High Risk Diagnosis: 3 points TPN or PPN: N NPO or clear liquid diet: N Serum Glucose <70 or >180: N Hgb A1c >6.7: N/A Total: 9 points Risk Screen: __ Patient at low nutritional risk based on available data; reevaluate in 5-7 days __ Patient at moderate nutritional risk based on available data; reevaluate in 3-5 days _X_ Patient at high nutritional risk; complete Nutrition Assessment within 48 hours of admission.
--- NOTE | 2016-11-05 09:27 | Progress Note (E) ---
Progress Note SUBJECTIVE No major issues reported overnight. Has not had any further fever since admit. Tolerating therapies. Blood culture remains negative. Sputum still pending. He feels he has well-turned the corner. Agrees to work with PT today to ensure strength/endurance are satisfactory. Possible discharge later today. OBJECTIVE Vital Signs Date Time Temp Pulse Resp B/P Pulse Ox O2 Delivery O2 Flow Rate FiO2 11/05/16 08:00 98.0 72 22 124/62 97 Nasal cannula I & O 11/04/16 11/05/16 Cumulative From/Thru 19:00 07:00 11/03/16 15:10 - 11/05/16 06:06 Intake Total 949 ml 696 ml 2830 ml Output Total 350 ml 1150 ml 2200 ml Balance 599 ml -454 ml 630 ml GEN: Awake, alert, oriented, NAD at present. HEENT: EOMI, clear sclerae, somewhat dry oral mucosa. CV: RRR S1 S2 normal with no murmur LUNGS: Prolonged expiration. Diminished. No R/R/W. ABD: Soft, NT/ND with normal bowel sounds. EXTR: No C/C/E. Normal peripheral pulses. INTEG: No rash. Some resolving bruises on left forearm. Several large dilated pores of [place] noted on back. NEURO: No focal motor neuro deficit. Weight: 65.7 kg (67.4 kg on admit) Lab-Past 14 Days, 35 Results 11/03/16 16:00: Alanine Aminotransferase (ALT/SGPT) 26L, Albumin 4.5, Albumin/Globulin Ratio 1.216, Alkaline Phosphatase 76, Anion Gap 20.3H, Aspartate Amino Transf (AST/ SGOT) 27, BUN/Creatinine Ratio 21H, Basophils # (Auto) 0.0, Basophils (%) (Auto ) 0, Blood Urea Nitrogen 17#, Calcium Level 9.5, Calcium/Ionized Calcium Ratio 3.8, Calculated Osmolality 276L, Carbon Dioxide Level 27, Chloride Level 99, Creatinine 0.82, Eosinophils # (Auto) 0.1, Eosinophils (%) (Auto) 1, Estimat Glomerular Filtration Rate 113.4, Estimated GFR (Non- 93.7, Glucose Level 101, Hematocrit 37.10L, Hemoglobin 12.0L, Lymphocytes # (Auto) 1.6 , Lymphocytes (%) (Auto) 11L, Mean Corpuscular Hemoglobin 28.2, Mean Corpuscular Hemoglobin Concent 32.3, Mean Corpuscular Volume 87, Mean Platelet Volume 10.1H, Monocytes # (Auto) 1.9, Monocytes (%) (Auto) 13H, Neutrophils # ( Auto) 10.5, Neutrophils (%) (Auto) 74H, Platelet Count 351, Potassium Level 4.4 , Red Blood Count 4.26L, Red Cell Distribution Width 13.4, Sodium Level 142, Total Bilirubin 0.9#, Total Protein 8.2, White Blood Count 14.15H 11/03/16 16:15: Adenovirus (PCR) Negative, Bordetella parapertussis DNA (PCR) Negative, Chlamydophila pneumoniae (PCR) Negative, Coronavirus Type 229E (PCR) Negative, Coronavirus Type HKU1 (PCR) Negative, Coronavirus Type NL63 (PCR) Negative, Coronavirus Type OC43 (PCR) Negative, Enterovirus/Rhinovirus (PCR) Positive*A, Human Metapneumovirus (PCR) Negative, Influenza Type A (H1) (PCR) Negative, Influenza Virus Type B (PCR) Negative, Mycoplasma pneumoniae (PCR) Negative, Parainfluenza Type 1 (PCR) Negative, Parainfluenza Type 2 (PCR) Negative, Parainfluenza Type 3 (PCR) Negative, Parainfluenza Type 4 (PCR) Negative, Respiratory Syncytial Virus (PCR) Negative 11/03/16 23:00: Urine Bilirubin Negative, Urine Blood Negative, Urine Clarity Clear, Urine Collection Type Clean catch, Urine Color Yellow, Urine Glucose (UA) Negative, Urine Ketones Negative, Urine Leukocyte Esterase Negative, Urine Nitrite Negative, Urine Protein Negative, Urine Specific [place] 1.025, Urine Urobilinogen 0.2, Urine pH 6.0 11/04/16 05:45: Albumin 4.0, Anion Gap 17.0H, Basophils # (Auto) 0.0, Basophils (%) (Auto) 0, Blood Urea Nitrogen 19H, Calcium Level 9.4, Carbon Dioxide Level 27, Chloride Level 101, Creatinine 0.74L, Eosinophils # (Auto) 0.0, Eosinophils (%) (Auto) 0 , Estimat Glomerular Filtration Rate 127.7, Estimated GFR (Non- 105.5, Glucose Level 140#H, Hematocrit 34.30L, Hemoglobin 11.2L, Lymphocytes # ( Auto) 0.9, Lymphocytes (%) (Auto) 8L, Mean Corpuscular Hemoglobin 28.0, Mean Corpuscular Hemoglobin Concent 32.7, Mean Corpuscular Volume 86, Mean Platelet Volume 9.9H, Monocytes # (Auto) 0.7, Monocytes (%) (Auto) 7, Neutrophils # (Auto ) 8.7, Neutrophils (%) (Auto) 85H, Platelet Count 335, Potassium Level 4.6, Red Blood Count 4.00L, Red Cell Distribution Width 13.1, Sodium Level 141, White Blood Count 10.29, Phosphorus Level 4.8# MICRO 11/03 Blood culture Negative to date 11/03 Resp PCR Panel Positive for entero/rhinovirus. 11/03 Sputum culture PENDING IMAGING 11/03/16 CHEST PA/LAT (2 VIEW)* INDICATION: COPD. TECHNIQUE: PA and lateral views of the chest were obtained. COMPARISON: 08/06/2016. FINDINGS: Extensive emphysema is seen in both lungs. There is no evidence of new mass or infiltrate. No pneumothorax is identified. There is no significant pleural fluid. There is diffuse thoracic spondylosis, similar to the previous exam. Pectus excavatum is again noted. IMPRESSION: Stable extensive emphysema and likely COPD. No new abnormality or adverse change is identified. ASSESSMENT Jenny Pruitt is a 66 year old male admitted from clinic 11/03 acute on chronic respiratory failure attributed to COPD with acute exacerbation. He had fever/ chills preceding hospitalization concerning for viral or bacterial pneumonia. He has a few chronic problems. PLAN * Acute on Chronic Respiratory Failure: Oxygen protocol. Treat COPD. * COPD Stage IV with Acute Exacerbation: Attriuted to entero/rhinovirus URI. Sputum culture pending. Tiotropium, fluticasone/salmeterol, albuterol PRN. Methylprednisolone, then prednisone. Doxycycline. * URI due to Entero/Rhinovirus: Supportive care. Throat lozenge. * Constipation: Bowel regimen. * Fever: acetaminophen, ibuprofen * Nausea: ondansetron, promethazine. * Deconditioning: PT eval and treat. * F/E/N: Regular diet. Peripheral IV. I&O, daily weight. * Prophylaxis: Enoxaparin * Code Status: DNR * Disposition: Inpatient, expecting 3-day stay. If stable after working with PT , consider discharge home today. CHRONIC ISSUES * HTN: Diltiazem * SVT: Diltiazem * Insomnia: Zolpidem * Allergic rhinitis: Fluticasone nasal. * Chronic pain: Tramadol. JENNY KARIMI MD November 05, 2016 09:13
--- NOTE | 2016-11-05 10:32 | NUR ---
NUTRITION ASSESSMENT Level II Patient: Baljit Pruitt Age/Sex: 66/M Date Assessed: 11-05-16 ASSESSMENT Pertinent History: Patient admitted with COPD exacerbation and screened at high nutritional risk secondary to BMI on the low end with documented weight loss in the past 3 months. PMHx includes COPD stage IV on home O2, emphysema, pneumonia, and rib fx. He lives alone at home but [facility]. [place] helps him with groceries and cleaning his house. Pt. denied weight changes on admission, but his weight hx. includes 150# 2016, and 154# Jul. 2015. He reports some nausea since admission. Meds/Nutrition: MVI, calcium/vitamin D, Prednisone Weight: 144.5#/65.7 kg Height: 73 inches Body Mass Index (BMI): 19.1 [place] Body Weight : 184#/83.6 kg % IBW: 78% GASTROINTESTINAL Appetite: good, eating 100% Diet Order: regular Unintentional loss of >10 lbs. in 3 months: N Difficult to chew/swallow: N Diabetes: N Relevant Labs: glucose 140 Calculations for Nutritional Assessment Estimated calorie needs: 28-30 kcals/kg = 1,820-1,950 kcals Estimated protein needs: 1.3-1.5 g/kg = 84-97 g./day DIAGNOSIS 1. Nutrition Diagnosis: Increased protein needs related to increased work of breathing as evidenced by COPD exacerbation and emphysema. 2. Nutrition Diagnosis: Unintentional weight loss related to inadequate intake as evidenced by 5.5# (3.6%) weight loss in the past 3 months. NUTRITIONAL INTERVENTION Goal: Patient will receive adequate nutrition to meet his needs and gradually regain weight back to UBW of 150#. Plan: Agree with regular diet; emphasize protein for minimum 84 g./day--may need to supplement with Ensure or protein shakes to help meet this, depending on his food choices throughout the day. Will follow closely. MONITORING & EVALUATION _X_ Monitor patients menu selections _X_ Monitor patients food intake per nursing notes __ Monitor NPO/clear liquid days __ Monitor lab values __ Monitor I&O __ Other
[2016-11-05 12:00] VITALS: BP 118/60
--- NOTE | 2016-11-05 14:12 | Physical Therapy Evaluation(E) ---
Plan of Care Patient was able to ambulate a functional distance for him due to his COPD. He is independent and safe with transfers in his room. Patient does not require any additional therapy services at this time. Goals Discussed/Agreed: Yes Discharge Recommendations: Home Independently (Patient encouraged to participate slowly continue strengthening exercises upon his return home. ) Aware of Dx and Prognosis: Yes Aware of Risk & Benefit: Yes To be Seen: One time only Initial Evaluation Service Date/Time 11/05/16, 14:05 Primary Diagnosis: (1) Acute and chronic respiratory failure ICD Code: J96.20 (2) COPD with acute exacerbation ICD Code: J44.1 (3) Weakness ICD Code: R53.1 Treatment Diagnosis: (1) Acute on chronic respiratory failure ICD Code: J96.20 (2) Community acquired pneumonia ICD Code: 486 (3) COPD with acute exacerbation ICD Code: J44.1 (4) Weakness ICD Code: R53.1 Onset Date: 11/03/2016 Start of Care Date: November 05, 2016 Resuscitation Status: Do Not Resuscitate Precaution/Isolation: Droplet Fall Level: No Risk 0-24 Initial Assessment Reason for Rehab: Increase Strength, Increase Endurance Medical History: COPD Pain Location/Comment Patient had HERNANDEZ earlier but it's improved. Prior Level of Function The patient lives independently in apartment, on 2L 02 continuously and has portable concentrator. He ambulates independently, still drives. [facility] and [facility] pool. Rehabilitation Potential: Good (Due to independent prior level of function. ) Distance Walked in Feet 90 feet x 2 on 2L 02 02 saturation dropped to 88%, HR 110 bpm, improved within two minutes. Assist: Independent Gait Description: Normal:No Sig. Deviation Gait Limitations: SOB Patient able to manage 02 tubing safely without unsteadiness. ROM/Strength Hip Mobility: Right Hip Strength: 4+ Left Hip Strength: 4+ Knee Flexion Mobility: Right Knee Flexion Strength: 4 Left Knee Flexion Strength: 4 Knee Extension Mobility: Right Knee Extension Strength: 5 Left Knee Extension Strength: 5 Ankle Mobility: Right Ankle Strength: 5 Left Ankle Strength: 5 Assessment/Goals Initial Transfer Assessment Rolling: Complete [place] Sit-Supine: Complete [place] Sitting Edge of Bed: Complete [place] Supine-Sit: Complete [place] Sit-Stand from Bed: Complete [place] Stand-Sit: Complete [place] Ambulation: Modified [place] Distance Walked in Feet 90 feet x 2 on 2L 02 Transfer Short Term Goals Comment Patient being seen for evaluation and treatment directly following therefore no goals will be set. Coding Time In: 1040 Time Out: 1121 Total Minutes: 39 Charges: 01254 Eval< 20 min, 20754 Gait Training 15 EVA Jones PT November 05, 2016 14:12
--- NOTE | 2016-11-05 15:15 | NUR ---
MULTIDISCIPLINARY MTG/DR. KARIMI: Pt. admitted with COPD exacerbation due to URI. Pt. has improved and feels he is able to return home. Pt. will possibly discharge home today with outpatient PT. No discharge needs identified at this time.
[2016-11-05] MEDS ORDERED: DOXY100T41 PO (15:47)
[2016-11-05] MEDS ORDERED: PRD20T PO (15:47)
--- NOTE | 2016-11-05 15:50 | Discharge Instructions (E) ---
Discharge Instructions Instructions * You were evaluated and treated for exacerbation of COPD. This was due to a viral upper respiratory infection due to rhinovirus/enterovirus. Review the provided handouts for details. In the next few days, be sure to use your breathing treatments up to 4 times daily as needed to help with your breathing. * Take the rest of the prednisone and doxycycline as prescribed. * To aid in your recovery, you are being referred to physical therapy to work on strength and endurance. Activity Instructions As tolerated. Doctor's Appointment Follow-up with you primary care doctor in 3-5 days. Discharge Diet: JENNY Thomson MD November 05, 2016 15:50
[2016-11-05 16:00] VITALS: BP 124/60
--- NOTE | 2016-11-05 16:36 | Discharge Summary (E) ---
Discharge Summary (E) Admit Date/Time November 03, 2016 at 15:00 Discharge Date/Time November 05, 2016 Admitting Provider Jenny Torrez MD Primary Care Provider Sudhir Beckett MD Attending Provider Jenny Torrez MD Consulting Provider History and Present Illness Jenny Pruitt is a 66 year old male admitted from clinic 11/03 with acute on chronic respiratory failure attributed to COPD with acute exacerbation. He had fever/chills preceding hospitalization concerning for viral or bacterial pneumonia. He has a few chronic problems. Respiratory PCR panel was positive for entero/rhinovirus but he was also found to have sputum culture positive for Moraxella catarrhalis. He improved fairly rapidly with standard therapies as outlined below and he worked well with PT 11/05. He felt he could manage at home so was discharged with prednisone, doxycycline, and referral to outpatient PT. Hospital Course and Treatment * Acute on Chronic Respiratory Failure: Oxygen protocol. Treated COPD. Status improved fairly rapidly to baseline. Already has oxygen at home. * COPD Stage IV with Acute Exacerbation: Attriuted to entero/rhinovirus URI. Sputum culture pending. Tiotropium, fluticasone/salmeterol, albuterol PRN. Methylprednisolone, then prednisone. Doxycycline. * Bronchitis: Multifactorial, due to entero/rhinovirus and Moraxella catarrhalis. Complete 10-day course of doxycycline which covers Moraxella well. * URI due to Entero/Rhinovirus: Supportive care. Throat lozenge. * Constipation: Resolved. Bowel regimen. * Fever: Resolved. acetaminophen, ibuprofen * Nausea: Resolved. ondansetron, promethazine. * Deconditioning: PT eval and treat... did well on assessment 11/05 but will benefit from further rehab in outpatient PT. * F/E/N: Regular diet. Peripheral IV. I&O, daily weight. * Prophylaxis: Enoxaparin * Code Status: DNR * Disposition: Inpatient. CHRONIC ISSUES * HTN: Diltiazem * SVT: Diltiazem * Insomnia: Zolpidem * Allergic rhinitis: Fluticasone nasal. * Chronic pain: Tramadol. Discharge Physicial Exam General Vital Signs Date Time Temp Pulse Resp B/P Pulse Ox O2 Delivery O2 Flow Rate FiO2 11/05/16 12:00 97.6 80 20 118/60 95 Nasal cannula GEN: Awake, alert, oriented, NAD at present. HEENT: EOMI, clear sclerae, somewhat dry oral mucosa. CV: RRR S1 S2 normal with no murmur LUNGS: Prolonged expiration. Diminished. No R/R/W. ABD: Soft, NT/ND with normal bowel sounds. EXTR: No C/C/E. Normal peripheral pulses. INTEG: No rash. Some resolving bruises on left forearm. Several large dilated pores of [place] noted on back. NEURO: No focal motor neuro deficit. Weight: 65.7 kg (67.4 kg on admit) Laboratory/Radiology Data Laboratory Results-14 Days 11/03/16 16:00: Alanine Aminotransferase (ALT/SGPT) 26L, Albumin 4.5, Albumin/Globulin Ratio 1.216, Alkaline Phosphatase 76, Anion Gap 20.3H, Aspartate Amino Transf (AST/ SGOT) 27, BUN/Creatinine Ratio 21H, Basophils # (Auto) 0.0, Basophils (%) (Auto ) 0, Blood Urea Nitrogen 17#, Calcium Level 9.5, Calcium/Ionized Calcium Ratio 3.8, Calculated Osmolality 276L, Carbon Dioxide Level 27, Chloride Level 99, Creatinine 0.82, Eosinophils # (Auto) 0.1, Eosinophils (%) (Auto) 1, Estimat Glomerular Filtration Rate 113.4, Estimated GFR (Non- 93.7, Glucose Level 101, Hematocrit 37.10L, Hemoglobin 12.0L, Lymphocytes # (Auto) 1.6 , Lymphocytes (%) (Auto) 11L, Mean Corpuscular Hemoglobin 28.2, Mean Corpuscular Hemoglobin Concent 32.3, Mean Corpuscular Volume 87, Mean Platelet Volume 10.1H, Monocytes # (Auto) 1.9, Monocytes (%) (Auto) 13H, Neutrophils # ( Auto) 10.5, Neutrophils (%) (Auto) 74H, Platelet Count 351, Potassium Level 4.4 , Red Blood Count 4.26L, Red Cell Distribution Width 13.4, Sodium Level 142, Total Bilirubin 0.9#, Total Protein 8.2, White Blood Count 14.15H 11/03/16 16:15: Adenovirus (PCR) Negative, Bordetella parapertussis DNA (PCR) Negative, Chlamydophila pneumoniae (PCR) Negative, Coronavirus Type 229E (PCR) Negative, Coronavirus Type HKU1 (PCR) Negative, Coronavirus Type NL63 (PCR) Negative, Coronavirus Type OC43 (PCR) Negative, Enterovirus/Rhinovirus (PCR) Positive*A, Human Metapneumovirus (PCR) Negative, Influenza Type A (H1) (PCR) Negative, Influenza Virus Type B (PCR) Negative, Mycoplasma pneumoniae (PCR) Negative, Parainfluenza Type 1 (PCR) Negative, Parainfluenza Type 2 (PCR) Negative, Parainfluenza Type 3 (PCR) Negative, Parainfluenza Type 4 (PCR) Negative, Respiratory Syncytial Virus (PCR) Negative 11/03/16 23:00: Urine Bilirubin Negative, Urine Blood Negative, Urine Clarity Clear, Urine Collection Type Clean catch, Urine Color Yellow, Urine Glucose (UA) Negative, Urine Ketones Negative, Urine Leukocyte Esterase Negative, Urine Nitrite Negative, Urine Protein Negative, Urine Specific [place] 1.025, Urine Urobilinogen 0.2, Urine pH 6.0 11/04/16 05:45: Albumin 4.0, Anion Gap 17.0H, Basophils # (Auto) 0.0, Basophils (%) (Auto) 0, Blood Urea Nitrogen 19H, Calcium Level 9.4, Carbon Dioxide Level 27, Chloride Level 101, Creatinine 0.74L, Eosinophils # (Auto) 0.0, Eosinophils (%) (Auto) 0 , Estimat Glomerular Filtration Rate 127.7, Estimated GFR (Non- 105.5, Glucose Level 140#H, Hematocrit 34.30L, Hemoglobin 11.2L, Lymphocytes # ( Auto) 0.9, Lymphocytes (%) (Auto) 8L, Mean Corpuscular Hemoglobin 28.0, Mean Corpuscular Hemoglobin Concent 32.7, Mean Corpuscular Volume 86, Mean Platelet Volume 9.9H, Monocytes # (Auto) 0.7, Monocytes (%) (Auto) 7, Neutrophils # (Auto ) 8.7, Neutrophils (%) (Auto) 85H, Platelet Count 335, Potassium Level 4.6, Red Blood Count 4.00L, Red Cell Distribution Width 13.1, Sodium Level 141, White Blood Count 10.29, Phosphorus Level 4.8# MICRO 11/03 Blood culture Negative to date 11/03 Resp PCR Panel Positive for entero/rhinovirus. SPEC #: [id number] RAQUEL: 11/03/16-604 STATUS: RES REQ #: [id number] RECD: 11/04/[address] [facility] [address]: JENNY TORREZ MD Order Location: MED/SURG SOURCE: SPUTUM DESCRIPTION: EXPECTORAT Procedure Result Verified GRAM STAIN Final Verified 11/04/16 Source: SPUTUM / EXPECTORATED Order Location: MEDICAL/SURGICAL LARGE WBCS (>50/LPF) RARE EPITHELIAL CELLS (0-5/LPF) FEW GRAM POSITIVE COCCI (5-25/OIL) RARE GRAM NEGATIVE DIPLOCOCCI (0-5/OIL) Culture Sputum Preliminary Verified 11/05/16-1210 AM Source: SPUTUM / EXPECTORATED Order Location: MEDICAL/SURGICAL Site: EXPECTORAT Received : 11/04/16 12:51 Order#: [id number] [facility] Sputum/Lower Respiratory Culture PRELIM 11/05/16 12:09 S Moraxella catarrhalis Beta-lactamase positive, Large amount S: Performed at:[place], [place] CLIA#[id number] PRICE FOR RESULTS: * - NEW RESULT - RESULT WAS MODIFIED AFTER FINAL STATUS SET IMAGING 11/03/16 CHEST PA/LAT (2 VIEW)* INDICATION: COPD. TECHNIQUE: PA and lateral views of the chest were obtained. COMPARISON: 08/06/2016. FINDINGS: Extensive emphysema is seen in both lungs. There is no evidence of new mass or infiltrate. No pneumothorax is identified. There is no significant pleural fluid. There is diffuse thoracic spondylosis, similar to the previous exam. Pectus excavatum is again noted. IMPRESSION: Stable extensive emphysema and likely COPD. No new abnormality or adverse change is identified. Discharge Disposition Discharged home in improved, stable condition. Instructions * You were evaluated and treated for exacerbation of COPD. This was due to a viral upper respiratory infection due to rhinovirus/enterovirus. Review the provided handouts for details. In the next few days, be sure to use your breathing treatments up to 4 times daily as needed to help with your breathing. * Take the rest of the prednisone and doxycycline as prescribed. * To aid in your recovery, you are being referred to physical therapy to work on strength and endurance. Activity Instructions As tolerated. Appointments Follow-up with you primary care doctor in 3-5 days. Discharge Diet: Regular Discharge Medications New Medications: Doxycycline Hyclate (Vibramycin) 100 Mg Tablet 100 MG PO DAILY@07,19 #16 Ref 0 TAB Prednisone (Deltasone) 20 Mg Tab 60 MG PO DAILY@0800 #6 TAB Continued Medications: Acetaminophen (Tylenol Extra Strength) 500 Mg Tablet 1000 MG PO q8hr PRN PAIN TAB Albuterol/Ipratropium (Duoneb 3mg-0.5mg/3ml) 3 Ml Nebu 3 ML INH QID PRN WHEEZING Ref 0 VIAL Alendronate Sodium (Alendronate Sodium) 70 Mg Tablet 70 MG PO WEEKLY - WEDNESDAY TAB Aspirin (Aspirin) 81 Mg Tablet.dr 81 MG PO DAILY@1700 Calcium Carbonate/Vitamin D3 (Calcium 600 + D3 Softgel) 1 Each Capsule 1 EACH PO DAILY CAP Diltiazem HCl (Cardizem CD) 240 Mg Cap.er.24h 240 MG PO DAILY Fluticasone Propionate (Flonase Nasal [place] 50mcg/actuation) 16 Gm Naspr 2 SPRAYS NSEACH DAILY PRN NOSE CONGESTION #16 Fluticasone/Salmeterol (Advair 250-50 Diskus) 1 Each Disk.w.dev 1 PUFF IH BID DISKUS Multivitamin (Multi-Vitamin Daily) 1 Each Tablet 1 EACH PO DAILY TAB Tiotropium [place] (Spiriva) 18 Mcg Cap.w.dev 18 MCG IH DAILY Zolpidem Tartrate (Ambien) 10 Mg Tablet 10 MG PO HS Follow up Follow up Referrals: Physical Therapy Service - Within 1 week with [facility] PT Discharge Diagnosis See list above. Problems: Copies to: End of Report . JENNY TORREZ MD November 05, 2016 16:36
--- NOTE | 2016-11-05 17:05 | NUR ---
Discharge instructions reviewed with patient; demonstrates understanding. SL removed with catheter tip intact. Coban applied per pt request. Skin warm, dry, intact. Resprs nonlabored, even on 2L NC. Switched to pt's personal portable O2. Pt dismissed at this time via w/c accompanied by ANDREW Craig.
== END 2016-11-05 17:05 | disposition home or self-care (01) | DRG 189 ==
LOC: MED/SURG 15:00
PROVIDERS: ADMIT Internal Medicine; ATTEND Internal Medicine
DX: J96.00 Acute respiratory failure, unspecified whether with hypoxia or hypercapnia (principal); J44.1 Chronic obstructive pulmonary disease with (acute) exacerbation; J44.0 Chronic obstructive pulmonary disease with (acute) lower respiratory infection; I47.1 Supraventricular tachycardia; Z66 Do not resuscitate; J20.8 Acute bronchitis due to other specified organisms; J06.9 Acute upper respiratory infection, unspecified; K59.00 Constipation, unspecified; I10 Essential (primary) hypertension; G89.29 Other chronic pain; Z99.81 Dependence on supplemental oxygen; Z79.82 Long term (current) use of aspirin; Z87.891 Personal history of nicotine dependence
CPT/HCPCS: 36415; 71020; 80053; 80069; 81003; 85025; 87040; 87070; 87205; 87486; 87581; 87633; 87798; 94640

== ENCOUNTER 2016-11-19 09:00 | Outpatient (RCR) | payer MEDICARE, OTHER ==
--- NOTE | 2016-11-13 15:23 | PT/OT/ST INITIAL EVALUATION ---
Department of Health and Human Services Form Approved [facility] Care Financing Administration OMB No. [id number] PLAN OF CARE/ASSESSMENT FOR OUTPATIENT REHABILITATION (Complete for Initial Claims Only) 1. PATIENT'S NAME Baljit Pruitt 2. ACC # [id number] [id number] 4. PROVIDER NO. [id number] 5. TYPE: PT 6. PRIOR HOSPITALIZATION NA 7. PRIMARY DX COPD, weakness and physical deconditioning 8. SECONDARY DX NA 9. ONSET DATE 11/03/2016 10. REFERRAL DATE NA 11. SOC. DATE 11/11/2016 12. TIME OF EVAL 9:11 a.m. to 9:48 a.m. 12. REFERRING PHYSICIAN Baljit Torrez MD 13. CHARGES/UNITS NA 14. G CODES [id number] 15. PRIOR LEVEL OF FUNCTION; PERTINENT HISTORY (Prior therapy results, reason for referral.) S: Prior to therapy the patient consented to today's evaluation and treatment. The patient is a 66-year-old male referred to physical therapy by Dr. Torrez to address COPD with acute exacerbation and physical deconditioning. Mechanism of injury: The patient has been treated in the past at the physical therapy clinic for acute COPD exacerbation and weakness. The patient reports being seen in the inpatient side of this hospital last week for acute COPD exacerbation. The patient reports completing home exercise program with no increase in endurance and an increase in weakness. Primary Complaint: The patient does report having increased weakness and fatigue throughout the day. The patient also gets shortness of breath quickly upon minimal physical activity. The patient also reports that the humidity at this time of the year is difficult for him to breathe well. Prior level of function: The patient reports completing his home exercise program from his last bout of physical therapy consisting of leg lifts, leg extensions, ambulation, and heel raises and toe raises at home. The patient is also reporting being able to ambulate 50 feet without difficulty and without needing standing rest breaks. Current level of function: The patient is currently ambulating with 2 liters of oxygen at all times. The patient is only able to ambulate 25 to 50 feet in the home before needing standing rest breaks. Therapy History: The patient has seen physical therapy for this condition in the past. The patient's most recent admission to therapy was 8 weeks ago. The patient did discharge and meet all goals at that time. Pain level: The patient is reporting no pain at this time. Obstacles to delivery of care: None identified at this time. Aggravating factors: The patient reports humidity and ambulating for long distances causes an exacerbation of his symptoms. Relieving factors: The patient does report assuming the rescue breathing position helps him to regain his breath. Past medical history: Hypertension, insomnia, pneumonia, emphysema and heart catheter, as well as ablation for SVG. Current medications: All medications can be found on the list provided by the patient's provider in the medical chart. Patient's Goal: The patient reports desiring to return to prior level of function, which include ambulating in the home without difficulty and also being able to ambulate within the community without becoming shortness of breath. 16. INITIAL ASSESSMENT/SAFETY PRECAUTIONS/MEDICAL COMPLICATIONS (Level of function at start of care. Be specific, use objective measures, list problems.) O: APPEARANCE, OBSERVATION AND GAIT: The patient is a pleasant and thin man who presents to physical therapy ambulating without an assistive device, reciprocal pattern, mild rounded shoulders and shallow breathing. SPECIAL TESTS: The patient completed a 6-minute walk today with a total distance of 382 feet. The patient did require a standing rest break after 160 feet with oxygen at 85%, heart rate at 110. The patient then continued the 6-minute walk test and needed a standing rest break at 382 feet. The patient had 87% oxygen and 117 bpm for his heart rate at this time. The patient also completed a bike assessment. The patient was able to bike 1-1/2 minutes before needing a break. The patient's oxygen was 84% and heart rate was at 105 at this time. The patient then continued to bike for 2 more minutes. Oxygen was at 91% and heart rate was at 106 bpm. STRENGTH: Hip flexion on the right 4/5, left 4/5. Hip extension on the right 4+/5, left 4+/5. Knee flexion right 5/5, left 5/5. Knee extension right 4+/5, left 4+5. Hip internal rotation right 4/5, left 4/5. Hip external rotation right 4-/5, left 4-/5. Hip abduction right 4+/5 and left 4+/5. TODAY'S TREATMENT: Today's treatment consisted of an education and the findings of the PT evaluation and the roll of physical therapy and the plan of care. Light therapeutic exercise was initiated, as well as education of a home exercise program. 17. INITIAL POC: (Specify procedures, modalities, short and long term care social worker goals) A: Upon completion of his initial PT evaluation, the patient presents with a fair prognosis in therapy pending regular attendance and therapy sessions and compliance with a home exercise program. PROGNOSIS: The patient's prognosis is fair due to therapy history and acute COPD exacerbations, which required hospitalization within the past 10 days. Skilled physical therapy services are needed for deconditioning, decreased strength and education on proper breathing mechanics and posture in order to reach patient's goals. [place] [address] MODERATE COMPLEXITY: The patient presents to physical therapy with extensive therapy history without retention of progress. The patient also had a recent hospitalization for his acute COPD exacerbation. The patient also has a complex past medical history of hypertension, insomnia, pneumonia, emphysema, and cardiac procedures. The patient had COPD for 10 years and has not been able to regain a lot of function through multiple therapy visits. The patient also unstable and changing characteristics of his COPD at this time. INFORMED CONSENT: The diagnosis, prognosis, treatment plan, risks and expected outcomes were discussed with this patient. The patient agreed to today's established plan of care. SHORT TERM GOALS: P: Plan to treat the patient 2 times a week for 4 weeks and 1 time a week for 4 weeks in order to address overall physical deconditioning and weakness. Treatment to include modalities of therapeutic exercise to increase the patient's endurance and strength, gait training, balance and proprioceptive training, neural reeducation, and patient education and home exercise program. 18. FREQUENCY 2 times per week and then 1 time per 19. DURATION 4 weeks/4 weeks 20. FUNCTIONAL LEVEL (End of claim period) 21. PHYSICIAN SIGNATURE ? ON FILE OR ENTER HERE: 22. DATE: I certify the need for these services furnished under this plan of care and if for partial hospitalization. 23. CERTIFICATION FROM THROUGH FORM [facility]-700
== END 2016-11-23 10:49 | disposition home or self-care (01) ==
LOC: PT 09:00
PROVIDERS: ATTEND Internal Medicine
DX: J44.1 Chronic obstructive pulmonary disease with (acute) exacerbation (principal); R53.81 Other malaise